=== PATIENT | female | born 1965 | race Caucasian/White ===

== ENCOUNTER → 2019-04-21 | Outpatient (CLI) | payer OTHER ==
[~2019-04-21] MED LIST: ALBUTEROL SULFATE 2.5 MG/3 ML VIAL NEB ONE
== END ==
LOC: RESP 10:02
PROVIDERS: ATTEND Family Medicine
DX: R05 Cough (principal)
CPT/HCPCS: 94060; J7611

== ENCOUNTER 2019-06-17 05:27 | Day surgery (SDC) | payer OTHER ==
[2019-06-17] MEDS ORDERED: LIDOCAINE 1% 10 ML VIAL INJ ONE (07:00)
[2019-06-17] MEDS ORDERED: PROPOFOL 200 MG/20 ML VIAL IV ONE (07:00)
[2019-06-17] MEDS ORDERED: LACTATED RINGERS 1,000 ML ONE (07:39)
[2019-06-17] MEDS: LACTATED RINGERS 1,000 ML IVS ONE (09:08)
[2019-06-17] MEDS ORDERED: MIDAZOLAM INJ 2 MG/2 ML VIAL ONE (09:42)
--- NOTE | 2019-06-17 11:46 | OP ---
DATE OF PROCEDURE: 06/17/19 INDICATION: 1. Screening colonoscopy. PROCEDURE: 1. Colonoscopy. SURGEON: Jair Tanner MD ANESTHESIA: General. FINDINGS: There was a single 1.5 to 2 mm polyp at the rectosigmoid, relatively flat, but viewed on late imaging. COMPLICATIONS: None. ESTIMATED BLOOD LOSS: None. CONDITION: Stable. PLAN: Discharge. INDICATION: Screening colonoscopy in 51-year-old. PROCEDURE: She was brought to the Operating Suite. General anesthesia was induced in lateral position. Digital rectal exam was normal. The scope was passed without difficulty to the cecum. The appendiceal orifice and ileocecal valve were identified. Upon withdrawal, no significant polyps or inflammation were seen. The small flat polyp was noted in the rectosigmoid. It was completely excised with forceps and sent for pathology. There was no significant bleeding and no abnormal findings in the distal rectum. She tolerated the procedure and was taken to Recovery to be discharged. #[id number] MTDD
[2019-06-17 11:48] VITALS: BP 141/90; TEMP 98; O2SAT 98
== END 2019-06-17 11:57 | disposition home or self-care (01) ==
LOC: AMB 05:27
PROVIDERS: ATTEND Surgery
DX: Z12.11 Encounter for screening for malignant neoplasm of colon (principal); K63.5 Polyp of colon; E89.0 Postprocedural hypothyroidism; F32.9 Major depressive disorder, single episode, unspecified; E78.00 Pure hypercholesterolemia, unspecified; I10 Essential (primary) hypertension; J45.909 Unspecified asthma, uncomplicated; Z90.711 Acquired absence of uterus with remaining cervical stump; Z79.899 Other long term (current) drug therapy
CPT/HCPCS: 00812; 45380; J2250; J3490; J7120

== ENCOUNTER → 2019-06-30 | Outpatient (CLI) | payer OTHER | LOC: LAB.O 09:51 | PROVIDERS: ATTEND Surgery | DX: R10.9 Unspecified abdominal pain (principal) ==

== ENCOUNTER → 2020-05-30 | Outpatient (CLI) | payer BC | LOC: GMAE 10:48 | PROVIDERS: ATTEND Family Medicine | DX: Z00.00 Encounter for general adult medical examination without abnormal findings (principal) ==

== ENCOUNTER 2020-07-31 13:21 | Outpatient (CLI) | payer BC | END 2020-08-01 13:05 | disposition home or self-care (01) | LOC: INFRM 13:21 | PROVIDERS: ATTEND Family Medicine | DX: U07.1 COVID-19 (principal); I10 Essential (primary) hypertension; Z23 Encounter for immunization ==